=== PATIENT | female | born 1965 | race Hispanic/Latino ===

== ENCOUNTER → 2017-06-01 | Outpatient (CLI) | payer OTHER ==
--- NOTE | 2017-06-07 16:57 | MAM ---
EXAM DESCRIPTION: 3D Screening BILATERAL : Digital Mammography. CLINICAL HISTORY: 51 years Female SCREENING . No complaints. Remote family history of ovarian cancer. No family history of breast cancer. No HRT. Menstrual status is unknown. COMPARISON: Baseline study at this facility. No prior reports available. TECHNIQUE: Bilateral CC and MLO projection full-field images, 3-D tomosynthesis digital mammographic technique. Also bilateral synthesized CC/ MLO full-field images. CAD not utilized. FINDINGS: Breast parenchymal density pattern is: Heterogeneously dense breast tissue, which may obscure small masses. No skin thickening or nipple retraction at the 900 clock position of the posterior third of the right breast, approximately 6 cm from the nipple, are radiating spiculated densities in a circumferential direction with what appears to be no central core on the MLO view but possible small mass density on the CC view. No calcifications. This is most likely a radial scar. Small vascular calcifications in the left breast. No focal, stellate mass or density, focal asymmetry , and no suspicious microcalcifications left breast. IMPRESSION: BI-RADS CATEGORY: 0 - INCOMPLETE- Need additional imaging evaluation. FOLLOW-UP: Recall for additional imaging: Bilateral full-field 3-D tomosynthesis LM images. Targeted right breast ultrasound if needed. Written communication concerning the IMPRESSION and Follow-up, will be mailed to the patient and referring health care provider. Electronically signed by: Jenaro Maynard MD 06/07/2017 4:56 PM COUNTER POCKET TRIMMER
== END ==
LOC: MAMMO 11:00
PROVIDERS: ATTEND Family Medicine
DX: Z12.31 Encounter for screening mammogram for malignant neoplasm of breast (principal)

== ENCOUNTER → 2017-06-15 | Outpatient (CLI) | payer OTHER ==
--- NOTE | 2017-06-18 13:48 | US ---
EXAM DESCRIPTION: Breast,Right: Ultrasound CLINICAL HISTORY: 51 yearsFemaleABNORMAL MAMMOGRAM COMPARISON: Digital 3-D tomosynthesis diagnostic right breast on the same visit. Bilateral 3-D tomosynthesis screening study 06/01/2017. TECHNIQUE: Transcutaneous scanning of the right breast utilizing two-dimensional and Doppler modes. Scanning performed by the chemical processing equipment repairer and Dr. Maynard. FINDINGS: Scanning at the 900 clock position of the right breast in the retroareolar region. 3.3 mm anechoic object with well marginated jaimes, parallel orientation, and posterior enhancement features is present. This is abutting dense and heterogeneous fibroglandular tissues with no well-defined margins orientation. Predominantly posterior acoustic attenuation. No focal mass or cyst. No large calcifications or parenchymal edema. No overlying scar or skin changes. IMPRESSION: 1. Bi-Rads Category 0 -Incomplete. Need Additional Imaging Evaluation. 2. Please refer to diagnostic right breast 3D tomosynthesis examination and report on this visit. The FINDINGS and the FOLLOW-UP plan were reviewed in person with the patient after the examination. Written communication explaining the IMPRESSION and FOLLOW-UP will be mailed to the patient and referring care provider. Electronically signed by: Jenaro Maynard MD 06/18/2017 1:48 PM PHARMACY SERVICES REPRESENTATIVE
--- NOTE | 2017-06-18 16:45 | MAM ---
EXAM DESCRIPTION: 3D Diagnostic, Right: Digital Mammography CLINICAL HISTORY: 51 [id number] ABNORMAL SCREENING focal asymmetry and possible radial scar right breast.. COMPARISON: 3-D digital screening bilateral study on 06/01/2017. Targeted right breast ultrasound following this examination. Report from prior examination also reviewed. TECHNIQUE: Right LM projection full-field images, 3-D tomosynthesis digital mammographic technique. Also right synthesized LM full-field images. CAD not utilized. FINDINGS: Right breast parenchymal density pattern is: Heterogeneously dense breast tissue, which may obscure small masses. No skin thickening or nipple retraction again noted is a unusual lesion with what appears to be a central fatty core and spiculated densities radiating out in a spherical orientation. This is in approximately the 900 clock position of the middle third of the lateral right breast approximately 4 to 5 cm from the nipple. Not associated with microcalcifications. ULTRASOUND: Scanning at the 900 clock position of the right breast in the retroareolar region. 3.3 mm anechoic object with well marginated jaimes, parallel orientation, and posterior enhancement features is present. This is abutting dense and heterogeneous fibroglandular tissues with no well-defined margins orientation. Predominantly posterior acoustic attenuation. No focal mass or cyst. No large calcifications or parenchymal edema. No overlying scar or skin changes. DISCUSSION: Because of the nature of this lesion, with no history of trauma or prior procedure, there is a slight risk of DCIS, or atypia. Bilateral breast MRI could be performed with gadolinium contrast and/or ultrasound-guided core biopsy, or mammographic stereotactic core biopsy. MRI scan with gadolinium IV contrast has a 97% negative predictive value. IMPRESSION: BI-RADS CATEGORY: 0 - INCOMPLETE- Need additional imaging evaluation. FOLLOW-UP: Recall for additional imaging: Bilateral breast MRI without and with gadolinium IV contrast.. The FINDINGS and the FOLLOW-UP plan will be reviewed in person with the patient after the examination. Written communication explaining the IMPRESSION and FOLLOW-UP will be mailed to the patient and referring care provider. Electronically signed by: Jenaro Maynard MD 06/18/2017 4:44 PM SPEECH INSTRUCTOR
== END ==
LOC: MAMMO 09:30
PROVIDERS: ATTEND Family Medicine
DX: R92.8 Other abnormal and inconclusive findings on diagnostic imaging of breast (principal)
CPT/HCPCS: 76641; 77065; G0279

== ENCOUNTER → 2018-06-28 | Outpatient (CLI) | payer OTHER ==
--- NOTE | 2018-06-30 17:32 | MAM ---
EXAM DESCRIPTION: 3D Screening LEFT : Digital Mammography. CLINICAL HISTORY: 52 years Female SCREENING . Right breast cancer, invasive ductal carcinoma in situ. Discovered in May 2017 followed by mastectomy June 2017. No family history of breast cancer. Childbirth. Premenopausal. No HRT Lifetime risk of developing breast cancer (Tyrer-Cuzick model)(%): Not calculated due to personal history of breast cancer. COMPARISON: Bilateral screening digital breast tomosynthesis 06/01/2017. TECHNIQUE: Left CC and MLO projection full-field images, digital tomosynthesis mammographic technique. Left digital 2-D full-field MLO images. CAD not available for tomosynthesis or 2-D images. Exaggerated left breast CC tomosynthesis on 06/30/2018. FINDINGS: Left breast parenchymal density pattern is: Heterogeneously dense breast tissue, which may obscure small masses. No skin thickening or nipple retraction. Scattered coarse calcifications and smaller calcifications in the left breast. Small left axillary lymph node. No new focal, stellate mass or density, focal asymmetry , and no suspicious microcalcifications left breast Stable mammograms compared to prior study. IMPRESSION: Benign exam. BIRAD CATEGORY: 2 BENIGN FINDINGS. RECOMMENDATIONS: FOLLOW UP: Routine digital left mammographic screening, one year interval from June 2018. Written communication explaining the IMPRESSION and follow-up, will be mailed to the patient and referring health care provider. According to the [employer], yearly mammograms are recommended starting at age 40 and continuing as long as a woman is in good health. Any breast change noted on a breast self-exam should be reported promptly to the patient's healthcare provider. Breast MRI is recommended for women with an approximately 20-25% or greater lifetime risk of breast cancer, including women with a strong family history of breast or ovarian cancer and women who have been treated for Hodgkin's disease. A negative mammographic report should not delay tissue diagnosis in patients with significant clinical history or physical findings. Extremely dense breast tissue limits the sensitivity of digital mammography. Electronically signed by: Jenaro Maynard MD 06/30/2018 5:29 PM CDT
== END ==
LOC: MAMMO 09:30
PROVIDERS: ATTEND Family Medicine
DX: Z12.31 Encounter for screening mammogram for malignant neoplasm of breast (principal)